=== PATIENT | female | born 1950 | race Caucasian/White ===

== ENCOUNTER 2018-12-04 16:21 | Outpatient (REF) | payer MEDICARE, SELFPAY ==
[2018-12-04 22:06] LABS: HCT 42.5 % (36.0-46.0); HGB 13.6 g/dL (12.0-15.5); Mean Corpuscular Hemoglobin 28.3 pg (27.0-33.0); Mean Corpuscular Volume 88.4 fL (80-95); Platelet Count 272 x1000/uL (130-400); RBC 4.81 m/cumm (4.00-5.20); RBC Distribution Width 14.3 % (11.7-14.6); White Blood Cell Count 5.46 k/cumm (4.4-10.8)
[2018-12-04 22:20] LABS: ALT 24 U/L (12-78); AST 19 U/L (15-37); Albumin 4.1 g/dL (3.4-5.0); Alkaline Phosphatase 58 U/L (46-116); Anion Gap 11.1 mmol/L (3-11); BUN 13 mg/dL (7-18); Bilirubin, Total 0.5 mg/dL (0.2-1.0); CO2 29.9 mmol/L (21.0-32.0); Calcium 9.5 mg/dL (8.5-10.1); Chloride 103 mmol/L (98-107); Glucose 87 mg/dL (70-100); Potassium 4.3 mmol/L (3.5-5.1); Sodium 144 mmol/L (136-145); TSH (W/Ref FT4) 1.11 uIU/mL (0.36-3.74); Total Protein 7.6 g/dL (6.4-8.2)
[2018-12-04 22:59] LABS: ESR 5 mm/hr (0-30)
[2018-12-06 10:29] LABS: HBs Antibody, Quant <3.1 mIU/mL; Hepatitis B Surface Ab Negative
[2018-12-06 10:32] LABS: Hep A Total Ab w Rflx IgM Positive (NEGAT)
[2018-12-12 13:21] LABS: Hep A Antibody IgM Negative (NEGAT)
== END 2018-12-04 16:41 ==
LOC: NCHCN 16:21
PROVIDERS: PCP Family Medicine; Visit Provider Family Medicine
DX: R19.7 Diarrhea, unspecified (principal)
CPT/HCPCS: 80053; 85027; 85652; 86706; 86709; 84443

== ENCOUNTER 2019-02-14 11:20 | Outpatient (REF) | payer MEDICARE, SELFPAY ==
[2019-02-14 22:15] LABS: Calculated LDL 157 mg/dL; Cholesterol 280 mg/dL (50-200); HDL Cholesterol 112 mg/dL (40-60); Triglyceride 55 mg/dL (30-150)
[2019-02-14 23:04] LABS: Uric Acid 4.2 mg/dL (2.6-6.0)
== END 2019-02-14 11:40 ==
LOC: NCHCN 11:20
PROVIDERS: PCP Family Medicine; Visit Provider Family Medicine
DX: M79.674 Pain in right toe(s) (principal); R60.0 Localized edema; E78.89 Other lipoprotein metabolism disorders
CPT/HCPCS: 80061; 84550

== ENCOUNTER 2022-07-28 09:18 | Outpatient (REF) | payer MEDICARE, SELFPAY ==
[2022-07-29 11:20] LABS: ALT 22 U/L (14-59); AST 17 U/L (15-37); Albumin 3.8 g/dL (3.4-5.0); Alkaline Phosphatase 48 U/L (46-116); Anion Gap 6.4 mmol/L (3-11); BUN 22 mg/dL (7-18); Bilirubin, Total 0.4 mg/dL (0.2-1.0); CO2 27.6 mmol/L (21.0-32.0); CREATININE 0.9 mg/dL (0.55-1.02); Calcium 9.5 mg/dL (8.5-10.1); Calculated LDL 145 mg/dL (<100); Chloride 100 mmol/L (98-107); Cholesterol 279 mg/dL (<200); Glucose 100 mg/dL (74-106); HDL Cholesterol 116 mg/dL (40-60); Potassium 3.9 mmol/L (3.5-5.1); Sodium 134 mmol/L (136-145); Total Protein 7.9 g/dL (6.4-8.2); Triglyceride 91 mg/dL (<150)
== END 2022-07-28 09:19 | disposition home or self-care (01) ==
LOC: LBN 09:18
PROVIDERS: PCP Family Medicine; Visit Provider Family Medicine
DX: R03.0 Elevated blood-pressure reading, without diagnosis of hypertension (principal); E66.9 Obesity, unspecified; E78.00 Pure hypercholesterolemia, unspecified
CPT/HCPCS: 80053; 80061